=== PATIENT | female | born 1950 | race Caucasian/White ===

== ENCOUNTER → 2019-04-03 | Outpatient (CLI) | payer MEDICARE, SELFPAY | END | disposition home or self-care (01) | PROVIDERS: Family Provider Family Medicine; PCP Family Medicine; Referring Provider Nurse Practitioner Adult Health | DX: R82.998 Other abnormal findings in urine (principal) | CPT/HCPCS: 87086; 87088; 87186 ==

== ENCOUNTER → 2019-06-09 15:06 | Outpatient (CLI) | payer MEDICARE, SELFPAY ==
[2019-06-09 13:26] VITALS: BMI 25.3
== END ==
PROVIDERS: Family Provider Family Medicine; PCP Family Medicine; Visit Provider Obstetrics & Gynecology
DX: N39.0 Urinary tract infection, site not specified (principal)
CPT/HCPCS: 87077; 87086; 87088; 87186

== ENCOUNTER → 2019-06-19 14:04 | Outpatient (CLI) | payer MEDICARE, SELFPAY ==
[2019-06-09 13:26] VITALS: BMI 25.3
[2019-06-17 16:05] VITALS: BMI 25.3
--- NOTE | 2019-06-19 14:06 | US_ITS ---
STUDY: ULTRASOUND OF THE FEMALE PELVIS - COMPLETE REASON FOR EXAM: Female, 69 years old. Postmenopausal bleeding. LMP: TECHNIQUE: Transabdominal and Transvaginal TECHNICAL QUALITY: Adequate. COMPARISON: None. FINDINGS: The uterus is retroverted and is in a midline position. The uterus measures 5.9 cm x 4.5 cm x 2.8 cm. Normal uterine cervix. The endometrium is thickened and measures 8.5 mm in thickness, and is fluid distended. There is a 1.7 cm x 2.2 cm x 1.4 cm irregular fluid collection in the superior aspect of the endometrium. There is no demonstrated myometrial mass. I.U.D. - The patient does not have an I.U.D. The right ovary is non-visualized. The left ovary is non-visualized. There is no fluid in the cul-de-sac. Polycystic ovary disease: No. US/Pelvic (Non ) IMPRESSION: Complex appearance of the endometrium as described. Clinical correlation is recommended. Electronically Signed: Shiv Bryant, at 15:02 EST , Service support ,
--- NOTE | 2019-06-19 14:06 | US_ITS ---
STUDY: ULTRASOUND OF THE FEMALE PELVIS - COMPLETE REASON FOR EXAM: Female, 69 years old. Postmenopausal bleeding. LMP: TECHNIQUE: Transabdominal and Transvaginal TECHNICAL QUALITY: Adequate. COMPARISON: None. FINDINGS: The uterus is retroverted and is in a midline position. The uterus measures 5.9 cm x 4.5 cm x 2.8 cm. Normal uterine cervix. The endometrium is thickened and measures 8.5 mm in thickness, and is fluid distended. There is a 1.7 cm x 2.2 cm x 1.4 cm irregular fluid collection in the superior aspect of the endometrium. There is no demonstrated myometrial mass. I.U.D. - The patient does not have an I.U.D. The right ovary is non-visualized. The left ovary is non-visualized. There is no fluid in the cul-de-sac. Polycystic ovary disease: No. US/Transvaginal Non- IMPRESSION: Complex appearance of the endometrium as described. Clinical correlation is recommended. Electronically Signed: Shiv Bryant, at 15:02 EST , Service support ,
== END ==
PROVIDERS: Family Provider Family Medicine; PCP Family Medicine; Referring Provider Obstetrics & Gynecology; Visit Provider Obstetrics & Gynecology
DX: N95.0 Postmenopausal bleeding (principal)
CPT/HCPCS: 76830; 76856

== ENCOUNTER → 2019-06-30 17:06 | Outpatient (CLI) | payer MEDICARE, SELFPAY ==
[2019-06-30 14:18] VITALS: BMI 25.2
== END ==
PROVIDERS: Family Provider Family Medicine; PCP Family Medicine; Referring Provider Obstetrics & Gynecology; Visit Provider Obstetrics & Gynecology
DX: N39.0 Urinary tract infection, site not specified (principal)
CPT/HCPCS: 87086; 87088

== ENCOUNTER 2019-07-01 11:25 | Day surgery (SDC) | payer MEDICARE, SELFPAY ==
[2019-06-09 13:26] VITALS: BMI 25.3
[2019-06-30 14:18] VITALS: BMI 25.2
[2019-07-01] VITALS (8 sets, daily range): BP systolic 125–143; BP diastolic 70–79; PULSE 65–72; RESP 12–16; TEMP 36.4–37.1; O2SAT 94–97; BMI 24.7
--- NOTE | 2019-07-01 | IMM_PTH ---
PATIENT: CARLOS GRIFFITH LOC: [facility] [place] U#:[id number] AGE/SX: 69/F ROOM: RE07/01/[address]: Dr. Radha Arzate MD : 1950 BED: DIS: 07/01/2019 SPEC #: [id number] RECD: 07/03/19 13:24 STATUS: KIA REQ #: [id number] CORDELIA: 07/01/19 00:[address]: Radha Arzate DEPT: IMMUNOHISTOCHEMISTRY RECD BY: Holly Ellis ENTERED: 07/03/19 13:24 SP TYPE: IMMUNO OTHR DR: Dr. Bruce Dunham MD Tissues: Endometrium, NOS Procedures: BCL-2 (add) BCL-6 (add) CD10 (add) CD138 (add) CD20 (add) CD23 (add) CD45 (add) CD5 (add) CD79A (add) CYCLIN (add) KAPPA (add) KI-67 (add) LAMBDA (add) CD3 (initial) PHYSICIAN [address] [address] SPECIMEN INFORMATION: Tissue Source: Endometrial curettings Clinical Info: [id number] Specimen Number: [id number] CPT code: 23692, 37054 x13 METHODOLOGY: Deparaffinized sections of prefer/formalin-fixed tissue or PAP/DQ stained slides are incubated with monoclonal/polyclonal antibodies/oligonucleotide probes. Localization is made via biotin free immunoperoxidase method. Appropriate controls are performed and reacted as expected. Results on target cell population are indicated in the following table: RESULTS: ANTIBODY / CLONE RESULT CD3 (PS1) positive CD5 (SP10) positive CD20 (L26) positive (also positive in plasma cells) CD45 (RP2/18) positive CD79a (11E3) positive CD138 (B-A38) positive Gamaliel (polyclonal) positive Lambda (polyclonal) positive Ki-67 (30-9) positive, low BCL-2 (bcl-2/100/D5) positive BCL-6 (JH410H/A8) negative Cyclin D1/BCL-1 (SP4) negative CD23 (1B12) negative CD10 (56C6) negative (positive in lymphoid aggregates in dendritic cell pattern) These tests were developed and their performance characteristics determined by [facility]. They may not have been cleared or approved by the U.S. Food and Drug Administration. The FDA has determined that such clearance or approval is not necessary. The above immunohistochemical/dualISH markers are ordered and reviewed by the Pathologist. 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 SJ:nilson 07/07/19 Case has been reviewed in consultation with Dr. Jerry who concurs with the above diagnosis. IDC:AM
--- NOTE | 2019-07-01 04:45 | HP.PCM_ITS ---
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 Is patient in pain?: No Allergies No Known Allergies Allergy (Verified 06/30/19 14:18) Medications brimonidine 0.1 % eye drops 1 drp OPHTHALMIC BID 06/09/19 [History Confirmed 06/30/19] Is last menstrual period known: No Post menopausal: Yes Patient : No : No PFSH Medical History Brain bleed (Acute) Fracture of neck (Acute) H/O thyroid cyst (Acute) Neurogenic bladder (Acute) Paralysis (Acute) Partial blindness (Acute) Stroke (Acute) Tuberculosis, meninges cerebral (Acute) Urinary incontinence (Acute) Surgical History H/O hernia repair (Acute) H/O lumpectomy (Acute) H/O thumb surgery (Acute) History of tonsillectomy (Acute) Social History (Updated 06/30/19 @ 15:32 by Radha Arzate MD) adopted: No household members: spouse housing: house number of children: 2 current occupational status: retired Smoking Status: Never smoker second hand exposure: No alcohol intake: current alcohol intake frequency: holidays/special occasions only substance use type: does not use seatbelt use: always do you feel safe at home: Yes additional social history: - [place] HPI preop: Details: CARLOS GRIFFITH is a 69 year old who presents for postmenopausal bleeding and thickened endometrium. Pregancy History 3 Elective abortions Hx Para 2 Spontaneous abortions Hx # Term Pregnancies 2 Ectopic pregnancies Hx # Pregnancies Multiple births # of living children 2 Past Pregnancies Del. Date Name GA/Weeks Outcome Route Bth Weight Gen Labor Lgth Anesthesia Del Locatn Provider FOB Unknown 1976- Is[place]ell Unknown 1973- [place] ROS Const Constitutional: Denies fatigue, fever(s), headache(s), increased appetite, poor appetite, weight gain or weight loss Cardio Card: Denies chest pain Resp Resp: Denies cough or dyspnea GI GI: Reports as per HPI; denies abdominal pain, constipation, nausea or vomiting : Denies nipple discharge Skin Skin/Breast: Denies nipple discharge Exam Const General: cooperative, healthy appearing, comfortable, no acute distress, well developed Nutritional Appearance: average body habitus Orientation: alert [facility] Head: normal to inspection, normocephalic Ears: hearing grossly normal bilaterally, external ears normal Nose: external nose normal, nares normal Face and sinus: normal facial exam Neck Neck: normal visual inspection, trachea midline Thyroid: thyroid normal Chest Chest palpation & inspection: normal inspection of the chest Resp Effort & Inspection: normal respiratory effort Cardio Rate: regular rate Rhythm: regular rhythm GI Inspection: normal to inspection, non-distended Palpation: soft, no hepatosplenomegaly Musc Other: gross motor intact no deficits, full bilateral strength Skin General: no rashes or lesions noted Neuro General: alert, awake, moves all extremities, no focal motor deficits Motor: muscle tone normal throughout Extrem General: normal to inspection, no pedal edema Psych Appearance: grossly normal Mental Status: mental status grossly normal Affect: normal affect Speech and Movement: speech and movement abnormal due to previous stroke but stable Assessment & Plan thickened endometrium, postmenopausal bleeding Plan After discussing the patient's diagnosis and treatment plan options, patient wishes to proceed with surgical management. I have discussed with the patient the risks, benefits, and alternatives of the procedure which include but are not limited to risks of anesthesia, bleeding, infection, possible damage to bowel, bladder, or surrounding vasculature which could lead to additional surgery to evaluate any complications. Patient agrees to procedure and wishes to proceed. ACOG/uptodate references given for additional information regarding procedure. Orders Orders: Culture, Urine Today N39.0 Coding Level of Care Code No Charge
[2019-07-01 12:38] LABS: Basophil# 0.04 X10^3/uL; Basophil% 0.7 % (0-1); Eosinophil# 0.14 X10^3/uL; Eosinophils% 2.5 % (0-5); Hematocrit 37.5 % (37-47); Hemoglobin 12.3 g/dL (12.0-15.0); Lymphocyte % 33.7 % (19-41); Mean Corp Hgb Conc 32.8 g/dL (32-36); Mean Corpuscular Hgb 30.1 pg (27.0-32.0); Mean Corpuscular Volume 91.9 fL (81-99); Mean Platelet Vol. 10.3 fl (6.2-12.0); Monocyte# 0.54 X10^3/uL; Monocyte% 9.6 % (0-10); NRBC Flagged by Analyzer 0 % (0-5); Neutrophil % 53.3 % (47-70); Platelet Count 254 K/mm3 (150-450); RBC Distribution Width CV 12.9 % (11.6-14.6); Red Blood Count 4.08 M/mm3 (4.2-5.4); White Blood Count 5.6 K/mm3 (4.4-11.0)
[2019-07-01] MEDS: Lactated Ringers 1,000 ML 100 ML IV (13:02)
[2019-07-01 13:05] LABS: Progesterone Level 0.21 ng/mL (See Comment)
--- NOTE | 2019-07-01 13:20 | EMB_PTH ---
PATIENT: CARLOS GRIFFITH LOC: [facility] [place] U#:[id number] AGE/SX: 69/F ROOM: RE07/01/[address]: Dr. Radha Arzate MD : 1950 BED: DIS: 07/01/2019 SPEC #: [id number] RECD: 07/02/19 08:33 STATUS: KAI DION #: [id number] CORDELIA: 07/01/19 13:[address]: Radha Arzate DEPT: SURGICAL PATHOLOGY RECD BY: Wu Velez ENTERED: 07/02/19 12:02 SP TYPE: ENDOM BX/C OT DR: Dr. Bruce Dunham MD Tissues: Endometrium, NOS Procedures: Surgery Specimen Level IV HEADER OPERATION: Hysteroscopy, dilation and curettage PRE-OP DIAGNOSIS: Thickened endometrium, postmenopausal bleeding TISSUE SUBMITTED: Endometrial curettings MICROSCOPIC DIAGNOSIS Endometrial curettings: Fragments of benign endometrial tissue with marked chronic endometritis. Fragments of benign ecto- and endocervical epithelium. See comment. SJ:nilson 07/03/19 COMMENT Chronic inflammation consists of marked lymphoplasmacytic infiltrates. Immunohistochemistry ([id number]) shows these infiltrates to be polytypic in nature. Focal mild acute inflammation is also noted. Clinical correlation and appropriated follow up are necessary. Case has been reviewed in consultation with Dr. Jerry who concurs with the above diagnosis. IDC:AM MICROSCOPIC DESCRIPTION Slides are reviewed. GROSS DESCRIPTION Received in fixative is one container labeled with the patient's name and designated endometrial curettings. The specimen consists of multiple irregular fragments of light velasquez mucoid material that in aggregate measure 2 x 1 x <0.1 cm. The specimen is totally submitted in one cassette. / AM:nilson 07/02/19 TC:3 CPT: 83102
[2019-07-01 13:21] LABS: ALB/GLOB Ratio 1.1 RATIO (0.9-2.4); AST(SGOT) 21 U/L (15-37); Alanine Aminotransfer ALT/SGPT 33 U/L (13-56); Albumin, Serum 3.8 g/dL (3.2-5.0); Alkaline Phosphatase 56 U/L (45-117); Anion Gap 6 (5-15); BUN 10 mg/dL (7-18); BUN/Creat Ratio 14.5 RATIO (10-20); Calcium,Total 8.9 mg/dL (8.5-10.1); Chloride 104 mmol/L (98-107); Creatinine, Serum 0.69 mg/dL (0.55-1.02); EST Glomerular Filtration Rate 89 mL/min (>60); Est Glom Filt Rate - Afr Amer 108 mL/min (>60); Estradiol < 11.0 pg/mL; Globulin 3.4 g/dL (2.2-4.2); Glucose 86 mg/dL (74-106); Potassium 3.6 mmol/L (3.5-5.1); Protein, Total 7.2 g/dL (6.4-8.2); Sodium Level 136 mmol/L (136-145)
--- NOTE | 2019-07-01 13:36 | PCM.OPRPT ---
Problem List (1) Post-menopausal bleeding Status: Acute (2) Recurrent UTI Status: Acute Report of Operation Date of Procedure: 07/01/19 Pre-Operative Diagnosis: postmenopausal bleeding thicekend endometrium Post-Operative Diagnosis: same Surgery/Procedure Performed:: d and c hysteroscopy Description of Surgical Findings:: Atrophic thin lining no gross abnormalities Type of Anesthesia:: Local MAC Special Medications: none Specimen's removed: emc Drains: none Estimated Blood Loss (mL): minimal Fluids Replaced: crystalloid Description of Procedure: Patient was prepped and draped in a normal sterile fashion under MAC anesthesia. A weighted speculum was placed in the vagina and the anterior lip of the cervix was grasped with a single-tooth tenaculum. A paracervical block was placed with 1% lidocaine. Cervix was progressively dilated to allow passage of a 5 mm hysteroscope. The lining was fully visualized and noted to have atrophic lining. Uterine sounded to 7 cm. Curettage was performed and very scant tissue was removed due to the severe atrophy of the lining of the uterus, sent to pathology. All instruments were removed from the vagina and excellent hemostasis was noted. Patient was awoken and taken to recovery in stable condition. Grafts/Implants Used: none - Complications none - Admit VTE Documentation VTE Present on Admission: No Multi Select Codes - Urinary/Genital Urinary/Genital CPT Codes: 27368 Hysteroscopy,EMC, Polypectomy
--- NOTE | 2019-07-01 13:42 | DCINST_ITS ---
Discharge Diet: No Restrictions Discharge Activity: Return to Normal Activity, May Shower, May Take a Tub Bath Allergies/Adverse Reactions: Allergies No Known Allergies Allergy (Verified 07/01/19 12:35) Medications to take at Discharge brimonidine 0.1 % eye drops 1 drp OPHTHALMIC BID 06/09/19 Primary Care Physician: Bruce Dunham [Primary Care Provider] - Test Results: Test results from this visit will be discussed in further detail at your follow- up appointment, if applicable. Please Follow Up With: Radha Arzate MD - [phone]
== END 2019-07-01 17:35 | disposition home or self-care (01) ==
LOC: SDC 11:25 → ACINP 11:33 → AC 11:47
PROVIDERS: Family Provider Family Medicine; PCP Family Medicine; Referring Provider Obstetrics & Gynecology; Visit Provider Obstetrics & Gynecology
PROC: 0UDB8ZZ Extraction of Endometrium, Via Natural or Artificial Opening Endoscopic (ICD-10-PCS; CPT 58558; principal; 2019-07-01 13:10)
DX: N71.1 Chronic inflammatory disease of uterus (principal); N31.9 Neuromuscular dysfunction of bladder, unspecified; H54.7 Unspecified visual loss; Z87.440 Personal history of urinary (tract) infections; Z86.2 Personal history of diseases of the blood and blood-forming organs and certain disorders involving the immune mechanism; Z86.73 Personal history of transient ischemic attack (TIA), and cerebral infarction without residual deficits; Z78.0 Asymptomatic menopausal state
CPT/HCPCS: 58558; 36415; 80053; 82670; 84144; 84403; 85025; 86850; 86900; 86901; 88305; 88341; 88342; J7120; J2405

== ENCOUNTER → 2020-01-09 | Outpatient (CLI) | payer MEDICARE, SELFPAY ==
[2020-01-09 16:03] VITALS: BMI 24.7
== END | disposition home or self-care (01) ==
LOC: LABSPEC 16:49
PROVIDERS: PCP Family Medicine; Referring Provider Obstetrics & Gynecology; Visit Provider Obstetrics & Gynecology
DX: N89.8 Other specified noninflammatory disorders of vagina (principal)
CPT/HCPCS: 87070; 87205

== ENCOUNTER → 2020-05-11 | Outpatient (CLI) | payer MEDICARE, SELFPAY ==
[2020-05-11 13:49] VITALS: BMI 24.7
== END | disposition home or self-care (01) ==
LOC: LABSPEC 16:51
PROVIDERS: PCP Family Medicine; Referring Provider Obstetrics & Gynecology; Visit Provider Obstetrics & Gynecology
DX: N76.0 Acute vaginitis (principal)
CPT/HCPCS: 87070; 87205

== ENCOUNTER → 2020-05-26 11:14 | Outpatient (CLI) | payer MEDICARE, SELFPAY ==
[2020-05-11 13:49] VITALS: BMI 24.7
--- NOTE | 2020-05-26 11:15 | US_ITS ---
STUDY: ULTRASOUND OF THE FEMALE PELVIS - COMPLETE REASON FOR EXAM: Female, 70 years old. POST MENOPAUSAL BLEEDING -- BLEEDING SINCE FEBRUARY -- HX OF D and amp;C 07/31 LMP: The patient is postmenopausal. TECHNIQUE: Transabdominal and Transvaginal TECHNICAL QUALITY: Adequate. COMPARISON: None. FINDINGS: The uterus is anteverted and is in a midline position. The uterus measures 6.4 cm x 5.3 cm x 3.5 cm. Normal uterine cervix. The endometrium is thickened and measures 21 mm in thickness, and is fluid distended. Within the endometrium, there is a 1.3 cm echogenic nodule. This may represent an endometrial mass. There is no demonstrated myometrial mass. I.U.D. - The patient does not have an I.U.D. The right ovary is visualized. The right ovary measures 1.9 cm x 1.9 cm x 1.8 cm. There is no right ovarian cyst or ovarian mass. There is no visualized right adnexal mass or complex lesion. There is normal arterial and normal venous vascularity. The left ovary is visualized. The left ovary measures 2.1 cm x 1.8 cm x 0.9 cm. There is no left ovarian cyst or ovarian mass. There is no visualized left adnexal mass or complex lesion. There is normal arterial and normal venous vascularity. There is no fluid in the cul-de-sac. The pre void volume of the bladder was 78 ml. US/Pelvic (Non ) IMPRESSION: Thickening of the endometrium with fluid distention and 1.3 cm mass. Biopsy recommended. Electronically Signed: Shiv Bryant, at 15:39 EDT , Service support ,
--- NOTE | 2020-05-26 11:15 | US_ITS ---
STUDY: ULTRASOUND OF THE FEMALE PELVIS - COMPLETE REASON FOR EXAM: Female, 70 years old. POST MENOPAUSAL BLEEDING -- BLEEDING SINCE FEBRUARY -- HX OF D and amp;C 07/31 LMP: The patient is postmenopausal. TECHNIQUE: Transabdominal and Transvaginal TECHNICAL QUALITY: Adequate. COMPARISON: None. FINDINGS: The uterus is anteverted and is in a midline position. The uterus measures 6.4 cm x 5.3 cm x 3.5 cm. Normal uterine cervix. The endometrium is thickened and measures 21 mm in thickness, and is fluid distended. Within the endometrium, there is a 1.3 cm echogenic nodule. This may represent an endometrial mass. There is no demonstrated myometrial mass. I.U.D. - The patient does not have an I.U.D. The right ovary is visualized. The right ovary measures 1.9 cm x 1.9 cm x 1.8 cm. There is no right ovarian cyst or ovarian mass. There is no visualized right adnexal mass or complex lesion. There is normal arterial and normal venous vascularity. The left ovary is visualized. The left ovary measures 2.1 cm x 1.8 cm x 0.9 cm. There is no left ovarian cyst or ovarian mass. There is no visualized left adnexal mass or complex lesion. There is normal arterial and normal venous vascularity. There is no fluid in the cul-de-sac. The pre void volume of the bladder was 78 ml. US/Transvaginal Non- IMPRESSION: Thickening of the endometrium with fluid distention and 1.3 cm mass. Biopsy recommended. Electronically Signed: Shiv Bryant, at 15:39 EDT , Service support ,
== END ==
PROVIDERS: PCP Family Medicine; Referring Provider Obstetrics & Gynecology; Visit Provider Obstetrics & Gynecology
DX: N95.0 Postmenopausal bleeding (principal)
CPT/HCPCS: 76830; 76856

== ENCOUNTER 2022-02-09 09:52 | Day surgery (SDC) | payer MEDICARE, SELFPAY ==
[2022-02-09] VITALS (11 sets, daily range): BP systolic 124–186; BP diastolic 76–99; PULSE 76–88; RESP 16–20; TEMP 36.6–37.6; O2SAT 91–97; BMI 23.1
[2022-02-09] MEDS: Lactated Ringers 1,000 ML 15 ML IV (10:40)
--- NOTE | 2022-02-09 11:05 | RAD_ITS ---
STUDY: X-RAY - LEFT KNEE REASON FOR EXAM: Female, 72 years old. FX TECHNIQUE: 2 view(s) of the knee. COMPARISON: None. FINDINGS: Fluoroscopy of the left knee was utilized in the operating room during patellar fracture open reduction internal fixation and 6 images are sent in for interpretation.. RAD/Knee 1 or 2 Views IMPRESSION: Fluoroscopy during open reduction internal fixation of patellar fracture. Electronically Signed: Tonny Hernadez MD at 16:59 EDT ,
--- NOTE | 2022-02-09 11:07 | PCM.HP.STD ---
HPI - General HPI Narrative This is a 72-year-old female with left-sided hemiparesis following a stroke approximately 45 years ago who normally ambulates without assistive device sustained a mechanical fall onto her left knee 01/31/2022. She was seen at [place] emergency department where x-rays confirmed a comminuted patella fracture. Patient denies any antecedent left knee pain. Patient followed up in our office with Devorah Márquez PA-C 02/02/2022. I reviewed the x-rays at time of patient's emergency department visit at which time I was consulted. I recommended outpatient follow-up. Patient was unable to perform straight leg raise. I reviewed x-rays again with Devorah. I recommended surgical intervention in form of a left patella open reduction internal fixation. I saw the patient in the preoperative holding area the day of the surgery. She denies any other associated injuries. Denied fevers, chills, nausea vomiting, chest pain or shortness of breath. Denies numbness or tingling. PFS Medical History (Updated 02/09/22 @ 11:[address] Orville Jacobs, ) Alcohol use Ambulates with cane Arthritis Brain bleed Eczema Fall Fracture of neck H/O thyroid cyst Leg cramps Neurogenic bladder Non-smoker Paralysis Partial blindness PONV (postoperative nausea and vomiting) Post-menopausal Stroke Tuberculosis, meninges cerebral Urinary incontinence Wears glasses Home Medications brimonidine 0.1 % eye drops (Alphagan P) 1 drp ophthalmic (eye) BID Rt Eye 06/09/19 [History Last Taken Unknown] B-complex with vitamin C 1 cap PO DAILY 05/11/20 [History Last Taken Unknown] ascorbic acid (vitamin C) 500 mg tablet (Vitamin C) 500 mg PO DAILY PRN per pt preference 05/11/20 [History Last Taken Unknown] cholecalciferol (vitamin D3) 50 mcg (2,000 unit) capsule 50 mcg PO DAILY 05/11/20 [History Last Taken Unknown] echinacea 500 mg capsule 500 mg PO BID 05/11/20 [History Last Taken Unknown] magnesium aspartate-potassium aspartate 250 mg-250 mg tablet 1 tab PO DAILY leg cramps 02/06/22 [History Last Taken Unknown] oxycodone-acetaminophen 5 mg-325 mg tablet (Percocet) 1 tab PO Q6H PRN Pain 02/06/22 [History Last Taken 02/09/22 07:00] Allergy/AdvReac Type Severity Reaction Status Date / Time No Known Allergies Allergy Verified 02/09/22 10:32 Surgical History (Updated 02/06/22 @ 09:51 by Angely Crystal) H/O hernia repair H/O lumpectomy H/O thumb surgery History of cataract extraction History of colonoscopy History of toe surgery History of tonsillectomy S/P dilation and curettage Social History (Updated 06/17/20 @ 14:[address] Radha Arzate MD) adopted: No household members: spouse housing: house number of children: 2 current occupational status: retired Smoking Status: Never smoker second hand exposure: No alcohol intake: current alcohol intake frequency: holidays/special occasions only substance use type: does not use seatbelt use: always do you feel safe at home: Yes additional social history: - [place] Vital Signs Vital Signs Vital Signs: 02/09/22 10:36 02/09/22 10:36 Temperature 99.7 F H Temperature Source Temporal Pulse Rate 76 Respiratory Rate 18 Respiratory Pattern Normal Blood Pressure 124/76 H Blood Pressure Mean 92 Blood Pressure Source Monitor Blood Pressure Position Sitting Blood Pressure Location Right Arm Pulse Ox 97 Oxygen Delivery Method Room Air Weight Weight: 143 lb 4.807 oz Body Mass Index (BMI) 23.1 Physical Exam Narrative General -A&Ox3, NAD, appears stated age. Vital signs stable, afebrile. Respiratory -normal work of breathing, no intercostal retractions. CV -pulses regular, brisk capillary refill ?4 limbs. Abdomen-soft, nontender, nondistended. No guarding, rigidity, rebound tenderness. Musculoskeletal/neurologic -full range of motion nontender throughout bilateral upper extremities, right lower extremity with full sensation and strength in all dermatomes and myotomes. no midline cervical tenderness. Left lower extremity-no obvious deformity. Healing ecchymosis noted over the anterior knee. Tenderness to palpation at the patella. Extensor lag noted with attempted straight leg raise. Brisk capillary refill. Sensation intact light touch L3-S1 dermatomes. DF, PF, EHL intact however foot drop is noted with equinus contracture. DP, PT 2+. Pelvis is stable, nontender. Skin is intact without lacerations, healing abrasion noted 5 cm proximal to the patella in the midline. No ecchymosis noted. Assessment & Plan Assessment/Plan (1) Comminuted fracture of left patella: PLAN: X-rays reviewed from [facility] emergency department 01/31/2022 demonstrates a comminuted displaced fracture of the patella with 1 cm diastases. Articular incongruency is noted. Prepatellar swelling is noted. I recommended surgical intervention in form of left patella open reduction internal fixation. The risks, benefits, terms the procedure reviewed with the patient at length and she agreed to proceed with surgery. Risk include but were not limited to bleeding, infection, loss of life or limb, nonhealing bone or wounds, persistent pain, posttraumatic arthritis, nonunion or malunion, neurovascular injury, DVT or PE, risk of anesthesia. Patient expressed understanding of these risks and wished to proceed with surgery.
[2022-02-09] MEDS: Cefazolin 1 GM/50 ML BAG IV (11:13)
[2022-02-09] MEDS: Bupivacaine Mpf 0.5% 30 ML VIAL (12:50)
--- NOTE | 2022-02-09 13:02 | DCINST_ITS ---
Discharge Instructions Follow Up Care Test Results: Test results from this visit will be discussed in further detail at your follow- up appointment, if applicable. Discharge Plan Admission Attending Provider: Orville Jacobs Primary Care Provider: Bruce Dunham Discharge Orders/Prescriptions Prescriptions: New oxycodone 5 mg tablet 10 mg PO Q6H PRN (Reason: pain) 7 Days Qty: 42 0RF No Action Alphagan P 0.1 % drops 1 drp OPHTHALMIC BID B-complex with vitamin C Capsule 1 cap PO DAILY ascorbic acid (vitamin C) [Vitamin C] 500 mg tablet 500 mg PO DAILY PRN (Reason: per pt preference) echinacea 500 mg capsule 500 mg PO BID Rx Instructions: administer with meals cholecalciferol (vitamin D3) 50 mcg (2,000 unit) capsule 50 mcg PO DAILY magnesium, potassium aspartate 250-250 mg Tablet 1 tab PO DAILY oxycodone-acetaminophen [Percocet] 5-325 mg Tablet 1 tab PO Q6H PRN (Reason: Pain) Referrals / Follow Up: Orville Jacobs DO [STAFF PHYSICIAN] - 02/22/22 Bruce Dunham MD [Primary Care Provider] - Disposition Disposition (needs filled in before D/C Order can be placed): Home, Self Care
--- NOTE | 2022-02-09 13:05 | OP.PCM_ITS ---
Report of Operation Date of Procedure: 02/09/22 Description of Surgical Findings:: Preoperative diagnosis: Left knee comminuted patella fracture Postoperative diagnosis: Left knee comminuted patella fracture Procedure: Left knee patella open reduction internal fixation Surgeon: Orville Jacobs DO Dry Yard Worker: Jil Westbrook PA-C Anesthesia: General endotracheal Anesthesiologist: Dr. Rivera Complications: None Drains: None Estimated blood loss: 50 cc Urinary output: None recorded IV fluids: Per anesthesia record Specimens: None Surgical implants: Arthrex star patella plate, 4.0 mm cannulated cancellous screw Surgical indications: This is a 72-year-old female with left-sided hemiparesis f ollowing a stroke approximately 45 years ago who normally ambulates without assistive device sustained a mechanical fall onto her left knee 01/31/2022.? She was seen at [facility] where x-rays confirmed a comminuted patella fracture.? Patient denies any antecedent left knee pain.? Patient followed up in our office with Devorah Márquez PA-C 02/02/2022.? I reviewed the x- rays at time of patient's emergency department visit at which time I was consulted.? I recommended outpatient follow-up.? Patient was unable to perform straight leg raise.? I reviewed x-rays again with Devorah.? I recommended surgical intervention in form of a left patella open reduction internal fixation.? I saw the patient in the preoperative holding area the day of the surgery.? She denies any other associated injuries.? I recommended open reduction internal fixation left patella after seeing the patient in consultation. The risks, benefits, alternatives to procedure were reviewed with the patient at length. She agreed to proceed with surgery. Risks included but were not limited to bleeding, infection, loss of life or limb, risk of anesthesia, need for additional surgery, persistent pain, nonhealing bone, malunion or nonunion, nonhealing wounds, arthrofibrosis, extensor lag, neurovascular injury, DVT or PE. Informed sent was obtained prior to procedure. Description of procedure: Patient was identified in the preoperative holding area by name, medical record number, and date of . The operative extremity was marked. Informed consent was confirmed with the patient. All questions were answered to her satisfaction. At time of her procedure, patient was brought to the operative suite and positioned supine a standard operating table. All bony prominences were well- padded. General anesthesia was induced with a laryngeal mask airway placed. After adequate anesthesia and securing the tube, a well-padded pneumatic tourniquet was applied to left upper thigh. We then prepped and draped the left lower extremity in a normal, sterile orthopedic fashion after placing a bump under the patient's left hip and elevating the left lower extremity slightly on bath blankets. 2 g Ancef was administered prior to the incision by anesthesia staff. We then performed a timeout with all parties in attendance in agreement with the side, site, and operation be performed. No concerns were voiced and we elected to proceed. I first exsanguinated the left lower extremity and Esmarch bandage. Tourniquet was inflated 250 mmHg remained up for approximately 60 minutes. Esmarch was removed. I was able to palpate a defect in the patella. Incision was carried sharply through skin and subcutaneous tissue approximately 10 cm in length overlying patella. Bursa and fascia was split in line with the incision. I then encountered the retinacular and comminuted patellar injury. Hematoma was debrided sharply. Fracture site was irrigated. There was a notable transverse component in the central portion of the patella which was clamped with a large pointed reduction tenaculum. K wires were then placed obliquely to secure the reduction. Orthogonal fluoroscopy confirmed acceptable reduction. I then placed a cannulated lag screw, 4.0 mm partially-threaded cancellous screw through the inferior pole of the patella to hold the compression across the transverse fracture component. Clamps were removed. I then selected a star- shaped plate from Arthrex to act as a locking plate placed over the anterior cortex of the patella. This was held in place provisionally and position was confirmed on fluoroscopy. I then placed locking screws in several holes of the plate, to ensure fixation is as many comminuted fragments as possible. I then placed 2 separate cerclage sutures around the plate interweaving through screw and suture holes with a #2 FiberWire and Arthrex suture tape. Final fluoroscopic images were obtained. Hardware appeared appropriate length and position. I flexed the knee 30 degrees and fracture demonstrated no significant gapping. I copiously irrigated the wound with normal saline solution. Tourniquet was deflated. Hemostasis achieved with Bovie cautery. Bursal layer was closed with interrupted [id number] #1 Vicryl. Dermis was reapproximated buried 2-0 Vicryl suture. Skin was finally reapproximated rolando. Sterile compression dressing was applied. Patient was placed back into her knee immobilizer. She was safely extubated in the operative suite and transferred to her gurney and subsequently PACU in stable condition. Need for skilled bilingual teacher assistant: Jli Westbrook PA-C was critical to the outcome of the case. During the course of the procedure the physician bilingual teacher assistant played a vital role. Her intimate knowledge of my steps in the procedure aided in safe and expedient completion of the procedure. The PA played a vital role in positioning particularly in obtaining the appropriate positioning. The PA was also vital in the retraction of soft tissues during the exposure and projecting vital structures. The PA was also vital and protecting soft tissues during times of fracture reduction and hardware placement. She also played a vital role in wound closure with my direct supervision. Post Operative Plan: Weightbearing: Weightbearing as tolerated left lower extremity -knee immobilizer. To be removed only for hygiene purposes, at which time the knee should not be flexed. Antibiotics: Ancef 2 g given prior to incision DVT Prophylaxis: 81 mg aspirin twice daily to start tomorrow Patel: None Dressing: Maintain until follow-up next week for dressing change X-Rays: None Follow-up: 2 weeks in my office
[2022-02-09] MEDS: HYDROcodone Bitartrate/Apap 5/325 Tablet PO ×2 (14:36→16:03)
== END 2022-02-09 17:03 | disposition home or self-care (01) ==
LOC: SDC 09:54 → AC 10:06
PROVIDERS: PCP Family Medicine; Referring Provider Student in an Organized Health Care Education/Training Program; Visit Provider Student in an Organized Health Care Education/Training Program
PROC: (CPT 27524; principal; 2022-02-09 11:15)
DX: S82.042A Displaced comminuted fracture of left patella, initial encounter for closed fracture (principal); I69.354 Hemiplegia and hemiparesis following cerebral infarction affecting left non-dominant side; G83.9 Paralytic syndrome, unspecified; N31.9 Neuromuscular dysfunction of bladder, unspecified; M19.90 Unspecified osteoarthritis, unspecified site; Z78.0 Asymptomatic menopausal state; Z87.440 Personal history of urinary (tract) infections; W19.XXXA Unspecified fall, initial encounter
CPT/HCPCS: 27524; 01392; 73560; 76000; C1713; J7120; J2405